=== PATIENT | male | born 2005 | race Caucasian/White ===

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

== ENCOUNTER 2024-06-24 12:27 | Emergency (ER) | payer OTHER ==
[2024-06-24] MEDS: Diphtheria,Pertussis(Acell),Tetanus Vaccine 0.5 ML Syringe IM ONE (13:10)
== END 2024-06-24 15:24 | disposition home or self-care (01) ==
LOC: MW.ED 12:27
DX: S01.01XA Laceration without foreign body of scalp, initial encounter (principal); S83.422A Sprain of lateral collateral ligament of left knee, initial encounter; F17.210 Nicotine dependence, cigarettes, uncomplicated; Z88.0 Allergy status to penicillin; Z23 Encounter for immunization; V28.09XA Other motorcycle driver injured in noncollision transport accident in nontraffic accident, initial encounter; Y93.89 Activity, other specified
CPT/HCPCS: 73502-26-LT; 73502-LT; 73562-26-LT; 73562-LT; 73590-26-LT; 73590-LT; 90471; 90715; 99284; 99284-25